=== PATIENT | male | born 1935 ===

== ENCOUNTER 2019-01-26 11:23 | Emergency (ER) | payer OTHER ==
[~2019-01-26] VITALS: Ht 175.3 cm; Wt 81.7 kg
[~2019-01-26 11:23] MED LIST: ASPI81CH PO
== END 2019-01-26 13:23 | disposition home or self-care (01) ==
LOC: ER 11:23
DX: S60.512A Abrasion of left hand, initial encounter (principal); M25.512 Pain in left shoulder; I10 Essential (primary) hypertension; Z79.82 Long term (current) use of aspirin; W19.XXXA Unspecified fall, initial encounter
CPT/HCPCS: 73030; 99283-25